=== PATIENT | male | born 1975 | race Caucasian/White ===

== ENCOUNTER 2017-10-09 12:37 | Emergency (ER) | payer MEDICAID ==
[2017-10-09 12:53] VITALS: BP 117/80
--- NOTE | 2017-10-09 13:47 | EDM.PDOC ---
ED HPI GENERAL MEDICAL PROBLEM - General Chief Complaint: Upper Extremity Injury/Pain Stated Complaint: LEFT HAND INJURY Time Seen by Provider: 10/09/17 13:24 Source of Information: Reports: Patient History Limitations: Reports: No Limitations - History of Present Illness INITIAL COMMENTS - FREE TEXT/NARRATIVE: Patient presents with left hand pain due to accidentally striking it with a hammer yesterday. He says the hand and fingers feel kind of cold and he has a numb feeling in the index finger. He thinks last tetanus vaccine was 5 or more years ago. Left Hand Pain Score (Numeric/FACES): 4 - Related Data Allergies Allergy/AdvReac Type Severity Reaction Status Date / Time Penicillins Allergy Cannot Verified 10/09/17 12:52 Remember Sulfa (Sulfonamide Allergy Cannot Verified 10/09/17 12:52 Antibiotics) Remember Home Meds: Home Meds traZODone HCl [Trazodone HCl] 50 mg PO BEDTIME 10/09/17 [History] Past Medical History HEENT History: Reports: Impaired Vision Gastrointestinal History: Reports: GERD Genitourinary History: Reports: Renal Calculus Psychiatric History: Reports: ADD, Anxiety, Bipolar, Depression, Panic Attack, Schizophrenia, Suicide Attempt - Infectious Disease History Infectious Disease History: Reports: Chicken Pox, MRSA - Past Surgical History HEENT Surgical History: Reports: Oral Surgery, Tonsillectomy GI Surgical History: Reports: Appendectomy, Colonoscopy, EGD Male Surgical History: Reports: Ureteral Stent Social & Family History - Tobacco Use Smoking Status *Q: Current Every Day Smoker Years of Tobacco use: 22 Packs/Tins Daily: 2 - Caffeine Use Caffeine Use: Reports: Soda, Tea Other Caffeine Use: regular - Alcohol Use Days Per Week of Alcohol Use: 1 Number of Drinks Per Day: 1 Total Drinks Per Week: 1 - Recreational Drug Use Recreational Drug Use: No Review of Systems - Review of Systems Review Of Systems: See Below Constitutional: Denies: Chills, Fever, Weakness Eyes: Reports: No Symptoms Ears: Reports: No Symptoms Nose: Reports: No Symptoms Mouth/Throat: Reports: No Symptoms Respiratory: Reports: No Symptoms Cardiovascular: Reports: No Symptoms. Denies: Lightheadedness, Syncope GI/Abdominal: Reports: No Symptoms Genitourinary: Reports: No Symptoms Musculoskeletal: Reports: Hand Pain. Denies: Neck Pain, Shoulder Pain, Arm Pain , Back Pain Skin: Denies: Cyanosis, Jaundice, Mottled, Pallor, Diaphoresis Neurological: Denies: Confusion, Dizziness, Headache, Trouble Speaking, Difficulty Walking, Weakness Psychiatric: Denies: Confusion ED EXAM, GENERAL - Physical Exam Exam: See Below Exam Limited By: No Limitations General Appearance: Alert, WD/WN, No Apparent Distress Eye Exam: Bilateral Eye: EOMI, Normal Inspection, PERRL Ears: Normal External Exam, Hearing Grossly Normal Nose: Normal Inspection, No Blood Throat/Mouth: Normal Inspection, Normal Lips, Normal Voice, No Airway Compromise Head: Atraumatic, Normocephalic Neck: Normal Inspection, Full Range of Motion Respiratory/Chest: No Respiratory Distress, Lungs Clear, Normal Breath Sounds, No Accessory Muscle Use Cardiovascular: Regular Rate, Rhythm, No Edema, No Gallop, No Murmur Back Exam: Full Range of Motion Extremities: Normal Capillary Refill, Other (Left hand is tender to palpation over the dorsal index MCP joint and there is mild swelling there along with a small abrasion. No erythema or cellulitis. AROM of finger is fair but maximal motion produces pain at the MCP. Passive ROM of IP joints is okay. Distal sensation and circulation is intact. Remainder of extremity exam is normal.) Neurological: Alert, Oriented, Normal Cognition, No Motor/Sensory Deficits Psychiatric: Normal Affect, Normal Mood Skin Exam: Warm, Dry, Intact, Normal Color, No Rash Course - Vital Signs Last Recorded V/S: Last Vital Signs Temp 97.8 F 10/09/17 12:49 Pulse 80 10/09/17 12:49 Resp 18 10/09/17 12:49 BP 117/80 10/09/17 12:49 Pulse Ox 96 10/09/17 12:49 - Orders/Labs/Meds Orders: Active Orders 24 hr Category Date Time Status Vaccines to be Administered [RC] PER UNIT ROUTINE Care 10/09/17 13:33 Ordered Hand Comp Min 3V Lt [CR] Stat Exams 10/09/17 13:04 Taken Meds: Medications Discontinued Medications Generic Name Dose Route Start Last Admin Trade Name Freq PRN Reason Stop Dose Admin Diphtheria/Tetanus/Acell Pertussis 0.5 ml 10/09/17 13:32 Adacel IM 10/09/17 13:33 .ONCE ONE - Re-Assessments/Exams Free Text/Narrative Re-Assessment/Exam: 10/09/17 13:51 Xrays reveal no evidence of fracture or bony pathology. Discussed findings with patient including the likelihood that the hammer blow caused irritation of the tendons over the bone in his hand. I placed an GRETA wrap on hand for support and comfort. We discussed expectations and treatment plan. Patient was administered a TDAP and discharged to home in stable condition. Departure - Departure Time of Disposition: 13:41 Disposition: Home, Self-Care 01 Condition: Good Clinical Impression: Contusion of left hand, initial encounter - Discharge Information Instructions: Hand Contusion, [id number] Referrals: Joyce Anaya, MAINTENANCE DATA ANALYST [Primary Care Provider] - Additional Instructions: 1. Try to limit activities that cause pain in the hand. 2. Wear the GRETA wrap as needed for support and comfort. 3. Use ice pack 2-3 times a day to reduce pain and swelling, for up to 3-4 days. 4. Take Ibuprofen 400-600 mg every 6-8 hours as needed for pain. 5. Follow up with your PCP if worsening or any sign of infection. - My Orders Last 24 Hours: My Active Orders 10/09/17 13:04 Hand Comp Min 3V Lt [CR] Stat 10/09/17 13:33 Vaccines to be Administered [RC] PER UNIT ROUTINE - Assessment/Plan Last 24 Hours: My Active Orders 10/09/17 13:04 Hand Comp Min 3V Lt [CR] Stat 10/09/17 13:33 Vaccines to be Administered [RC] PER UNIT ROUTINE
[2017-10-09] MEDS: Diphtheria,Pertussis(Acell),Tetanus Vaccine 0.5 ML SDV IM ONE (13:49)
== END 2017-10-09 13:57 | disposition home or self-care (01) ==
LOC: KA.ED 12:37
DX: S60.222A Contusion of left hand, initial encounter (principal); F17.210 Nicotine dependence, cigarettes, uncomplicated; Z88.0 Allergy status to penicillin; Z88.2 Allergy status to sulfonamides; Z23 Encounter for immunization; W22.8XXA Striking against or struck by other objects, initial encounter
CPT/HCPCS: 73130-LT; 90471; 90715; 99283